=== PATIENT | male | born 1945 | race Caucasian/White ===

== ENCOUNTER 2016-04-14 07:06 | Inpatient (IN) | payer MEDICARE ==
[~2016-04-14] VITALS: Ht 185.4 cm; Wt 98.2 kg
[2016-04-14] VITALS (9 sets, daily range): BP systolic 142–210; BP diastolic 67–105; PULSE 64–95; RESP 18–20; TEMP 97.8–98.5; O2SAT 95–99
--- NOTE | 2016-04-14 07:15 | PD ---
HPI Chief Complaint: Complaint Time Seen by Provider: 07:07 Travel History International Travel<30 days: No Contact w/Intl Traveler<30days: No Traveled to known affect area: No History of Present Illness HPI 71-year-old male came to the emergency room with history of right lower quadrant and flank pain since past 3-4 days and progressively worsening. He was brought in by EMS. He looks uncomfortable and points the pain right in the right lower quadrant area and around it. He was hypertensive when he came in but also looked anxious. Patient says that he has not seen a doctor in 15-18 years. He is not on any medications. He is nauseous but no active vomiting or diarrhea. He did say that he's been having hard time having bowel movements because of some constipation. He did have a bowel movement yesterday. No history of fever or chills. Patient was afebrile in the emergency room. He has never had this kind of pain before. No history of passing kidney stones. He still has his appendix. Nothing makes the pain better or worse. [facility] Past Medical History Narrative Medical List of his past medical, social and family history is reviewed from the nursing note. Social History Tobacco Use: No Allergies-Medications (Allergen,Severity, Reaction): Coded Allergies: No Known Allergies (Unverified , 04/14/16) Comments No known drug allergies. Reported Meds & Prescriptions Reported Meds & Active Scripts Active Reported Aspirin Low Dose (Aspirin) 81 Mg Chew 81 Mg CHEW DAILY Multivitamin Adults (Multiple Vitamins W/ Minerals) 1 Tab 1 Tab PO DAILY Narrative Medication List of his home medications reviewed from the nursing note. Review of Systems Except as stated in HPI: all other systems reviewed are Neg Physical Exam Narrative GENERAL: Awake, alert, moderate distress SKIN: Warm and dry. HEAD: Atraumatic. Normocephalic. EYES: Pupils equal and round. No scleral icterus. No injection or drainage. ENT: No nasal bleeding or discharge. Mucous membranes pink and moist. NECK: Trachea midline. No JVD. CARDIOVASCULAR: Regular rate and rhythm. No murmur appreciated. RESPIRATORY: No accessory muscle use. Clear to auscultation. Breath sounds equal bilaterally. GASTROINTESTINAL: Abdomen soft, mild right lower quadrant tenderness on deep palpation, nondistended. Hepatic and splenic margins not palpable. MUSCULOSKELETAL: No obvious deformities. No clubbing. No cyanosis. No edema. NEUROLOGICAL: Awake and alert. No obvious cranial nerve deficits. Motor grossly within normal limits. Normal speech. PSYCHIATRIC: Appropriate mood and affect; insight and judgment normal. Data Data Last Documented VS Vital Signs Date Time Temp Pulse Resp B/P Pulse Ox O2 Delivery O2 Flow Rate FiO2 04/14/16 10:01 91 20 176/83 98 Room Air 04/14/16 07:20 97.8 Orders Complete Blood Count With Diff (04/14/16 07:19) Comprehensive Metabolic Panel (04/14/16 07:19) Lipase (04/14/16 07:19) Prothrombin Time / Inr (Pt) (04/14/16 07:19) Urinalysis - C+S If Indicated (04/14/16 07:19) Ct Abd/Pel W/O Iv Contrast (04/14/16 07:19) Iv Access Insert/Monitor (04/14/16 07:19) Ecg Monitoring (04/14/16 07:19) Oximetry (04/14/16 07:19) Morphine Inj (Morphine Inj) (04/14/16 07:30) Ondansetron Inj (Zofran Inj) (04/14/16 07:30) Sodium Chlor 0.9% 1000 Ml Inj (Ns 1000 M (04/14/16 07:19) Sodium Chloride 0.9% Flush (Ns Flush) (04/14/16 07:30) Blood Culture (04/14/16 09:27) Lactic Acid (04/14/16 09:27) Ceftriaxone Inj (Rocephin Inj) (04/14/16 09:30) Morphine Inj (Morphine Inj) (04/14/16 09:45) Sodium Chlor 0.9% 1000 Ml Inj (Ns 1000 M (04/14/16 10:34) Urinary Catheter Insert/Apply (04/14/16 09:34) Consult Urology (04/14/16 ) Admit Order (Ed Use Only) (04/14/16 10:00) Aspirin Chew (Aspirin Chew) (04/15/16 09:00) Multivitamins-Minerals Therap (Theragran (04/15/16 09:00) Labs Laboratory Tests Test 04/14/16 04/14/16 07:45 09:15 White Blood Count 19.3 TH/MM3 Red Blood Count 5.25 MIL/MM3 Hemoglobin 16.2 GM/DL Hematocrit 46.5 % Mean Corpuscular Volume 88.7 FL Mean Corpuscular Hemoglobin 30.8 PG Mean Corpuscular Hemoglobin 34.8 % Concent Red Cell Distribution Width 13.5 % Platelet Count 239 TH/MM3 Mean Platelet Volume 8.4 FL Neutrophils (%) (Auto) 57.4 % Lymphocytes (%) (Auto) 40.1 % Monocytes (%) (Auto) 2.2 % Eosinophils (%) (Auto) 0.1 % Basophils (%) (Auto) 0.2 % Neutrophils # (Auto) 11.1 TH/MM3 Lymphocytes # (Auto) 7.7 TH/MM3 Monocytes # (Auto) 0.4 TH/MM3 Eosinophils # (Auto) 0.0 TH/MM3 Basophils # (Auto) 0.0 TH/MM3 CBC Comment AUTO DIFF Differential Total Cells 100 Counted Neutrophils % (Manual) 48 % Band Neutrophils % 2 % Lymphocytes % 33 % Monocytes % 3 % Neutrophils # (Manual) 9.7 TH/MM3 Differential Comment FINAL DIFF MANUAL Atypical Lymphocytes 14 % Platelet Estimate NORMAL Platelet Morphology Comment NORMAL Red Cell Morphology Comment NORMAL Prothrombin Time 10.2 SEC Prothromb Time International 0.9 RATIO Ratio Urine Color YELLOW Urine Turbidity CLEAR Urine pH 5.5 Urine Specific [place] 1.016 Urine Protein NEG mg/dL Urine Glucose (UA) NEG mg/dL Urine Ketones NEG mg/dL Urine Occult Blood NEG Urine Nitrite NEG Urine Bilirubin NEG Urine Urobilinogen LESS THAN 2.0 MG/DL Urine Leukocyte Esterase NEG Urine RBC LESS THAN 1 /hpf Urine WBC LESS THAN 1 /hpf Urine Squamous Epithelial <1 /hpf Cells Urine Mucus FEW /lpf Microscopic Urinalysis Comment CULT NOT INDICATED Sodium Level 141 MEQ/L Potassium Level 4.7 MEQ/L Chloride Level 107 MEQ/L Carbon Dioxide Level 24.8 MEQ/L Anion Gap 9 MEQ/L Blood Urea Nitrogen 19 MG/DL Creatinine 1.24 MG/DL Estimat Glomerular Filtration 58 ML/MIN Rate Random Glucose 134 MG/DL Calcium Level 9.4 MG/DL Total Bilirubin 0.5 MG/DL Aspartate Amino Transf 37 U/L (AST/SGOT) Alanine Aminotransferase 45 U/L (ALT/SGPT) Alkaline Phosphatase 112 U/L Total Protein 8.0 GM/DL Albumin 4.5 GM/DL Lipase 88 U/L Lactic Acid Level 1.9 mmol/L [facility] Medical Decision Making Medical Screen Exam Complete: Yes Emergency Medical Condition: Yes Medical Record Reviewed: Yes Differential Diagnosis Acute appendicitis, renal colic, UTI Narrative Course 9:39 AM blood test results of back and shows significant leukocytosis with some left shift. UA looks to be within normal limit. Patient has some renal insufficiency. CAT scan was read as right hydroureter and hydronephrosis. However the radiologist cannot see the cause of the obstruction since it is not visible.There is a possibility of radiolucent stone or any other reason. Also patient has enlarged prostate and significant amount of urine in the bladder. I asked the patient if he had urinated after he came back from CT scan and he said maybe 200-250 cc. I have asked the nurse to go ahead and put a Yu catheter since I think patient at this point is and urinary obstruction. I explained the test results including the CAT scan report to the patient and his . I have ordered 1 g of Rocephin for a possible infection probably proximal to the right sided ureteral obstruction. Patient is still in pain and I have ordered a second dose of morphine. Initially I had given him a liter fluid bolus. I've ordered a fluid drip. I would like to consult urologist since in my opinion this patient needs to be scoped to see the cause of obstruction. I am waiting for the hospitalist call back for admission. Patient is aware of this status and is agreeable to the treatments. 9:49 AM I just spoke with Dr. Veliz from urology and he will consult on this patient once he is admitted. He does not foresee any surgical procedure today since he wants to do more workup on this patient first. Awaiting for the hospitalist to call back at this point. The nurse told me that 1600+ cc of urine has drained out since putting the Yu and it is still coming out. Procedures EKG Prior to Arrival: No Physician Communication Physician Communication Dr. Veliz Diagnosis Primary Impression: Hydroureter, right Additional Impressions: Hydronephrosis, right Right flank pain Leukocytosis Qualified Code: D72.829 - Leukocytosis, unspecified type Renal insufficiency Obstructive uropathy Admitting Information Admitting Physician Requests: Admit Scripts Tamsulosin (Flomax)0.4 Mg Cap0.4 Mg PO HS #30 CAP Prov:Mayco Ponce MD 04/15/16 Víctor Ortega MD Apr 14, 2016 07:15
[2016-04-14] MEDS ORDERED: SODIUM CHLOR 0.9% 1000 ML INJ 1,000 ML IV SCH ×2 (07:19→10:34)
[2016-04-14] MEDS ORDERED: MULT1TAB84 PO (07:26)
[2016-04-14] MEDS ORDERED: ASPI81CH37 CHEW (07:26)
[2016-04-14] MEDS ORDERED: MORPHINE SULFATE 4 MG/ML INJ IV PUSH ONE ×2 (07:30→09:45)
[2016-04-14] MEDS ORDERED: ONDANSETRON HCL 4 MG/2 ML VIAL IVP ONE (07:30)
[2016-04-14] MEDS ORDERED: SODIUM CHLORIDE 0.9% FLUSH 5 ML FLUSH IVF PRN ×2 (07:30→10:15)
[2016-04-14 08:16] LABS: AUTOMATED NEUTROPHIL # 11.1 TH/MM3 (1.8-7.7); BASOPHIL % 0.2 % (0.0-2.0); EOSINOPHIL % 0.1 % (0.0-4.0); HEMATOCRIT 46.5 % (39.0-51.0); LYMPH % 40.1 % (9.0-44.0); LYMPHOCYTE # 7.7 TH/MM3 (1.0-4.8); MEAN CELL VOLUME 88.7 FL (80.0-100.0); MEAN CORPUSCULAR HEMOGLOBIN 30.8 PG (27.0-34.0); MEAN CORPUSCULAR HGB CONC 34.8 % (32.0-36.0); MONO % 2.2 % (0.0-8.0); NEUT % 57.4 % (16.0-70.0); PLATELET COUNT 239 TH/MM3 (150-450); RED BLOOD COUNT 5.25 MIL/MM3 (4.50-5.90); RED CELL DISTRIBUTION WIDTH 13.5 % (11.6-17.2); WHITE BLOOD COUNT 19.3 TH/MM3 (4.0-11.0)
[2016-04-14 08:19] LABS: BLOOD, URINE NEG (NEG); COMMENT (UR) CULT NOT INDICATED; CULTURE IF INDICATED CULT NOT INDICATED; GLUCOSE,URINE NEG (NEG); HEMO FLAGS AUTO DIFF; KETONE, URINE NEG (NEG); MUCUS URINE FEW /lpf (OCC); NITRITE,URINE NEG (NEG); PH, URINE 5.5 (5.0-8.5); SQUAMOUS EPITHELIAL CELL URINE <1 /hpf (0-5); URINE COLOR YELLOW (YELLW/STRAW)
[2016-04-14 08:23] LABS: INTERNATIONAL NORMALIZED RATIO 0.9 RATIO; PROTHROMBIN TIME - PATIENT 10.2 SEC (9.8-11.6)
[2016-04-14 08:51] LABS: ALKALINE PHOSPHATASE 112 U/L (45-117); TOTAL BILIRUBIN ADULT 0.5 MG/DL (0.2-1.0)
[2016-04-14 08:52] LABS: ALT (GPT) 45 U/L (12-78); ANION GAP 9 MEQ/L (5-15); AST (GOT) 37 U/L (15-37); BICARBONATE 24.8 MEQ/L (21.0-32.0); BLOOD UREA NITROGEN 19 MG/DL (7-18); CHLORIDE 107 MEQ/L (98-107); GLOMERULAR FILTRATION RATE 58 ML/MIN (>89); POTASSIUM 4.7 MEQ/L (3.5-5.1); SODIUM (NA) 141 MEQ/L (136-145)
--- NOTE | 2016-04-14 08:55 | RADRPT ---
EXAM DATE/TIME: 04/14/2016 08:17 [place] COMPARISON: No previous studies available for comparison. INDICATIONS : Abdomen pain. ORAL CONTRAST: No oral contrast ingested. RADIATION DOSE: 15.59 CTDIvol (mGy) MEDICAL HISTORY : None SURGICAL HISTORY : Hernia ENCOUNTER: Initial ACUITY: 1 day PAIN SCALE: 5/10 LOCATION: Abdomen TECHNIQUE: Volumetric scanning of the abdomen and pelvis was performed. Using automated exposure control and ad justment of the mA and/or kV according to patient size, radiation dose was kept as low as reasonably achievable to obtain optimal diagnostic quality images. FINDINGS: LOWER LUNGS: The visualized lower lungs are clear. LIVER: Homogeneous density without lesion. There is no dilation of the biliary tree. No calcified gallston es. SPLEEN: Normal size without lesion. PANCREAS: Within normal limits. KIDNEYS: Bilateral peripelvic cysts are present. There is a 2 mm stone of the left mid zone that is quite thang rly nonobstructing. There is mild hydronephrosis and hydroureter on the right. Additionally, there is perinephric and periureteral edema. I don't clearly see a right-sided stone. Also no stone seen in t he urinary bladder. The bladder has a considerable amount of urine in it at the time of imaging. Ther e is mild wall thickening. A small diverticulum is seen of the bladder dome. Prostate mildly enlarged at about 5.1 cm transverse. ADRENAL GLANDS: Within normal limits. VASCULAR: There is no aortic aneurysm. BOWEL/MESENTERY: There is moderate to severe diverticulosis of the left side of the colon. No acute inflammatory padilla es are seen. Bowel gas pattern is nonobstructive. ABDOMINAL WALL: Within normal limits. RETROPERITONEUM: There is no lymphadenopathy. BLADDER: No wall thickening or mass. REPRODUCTIVE: Enlarged prostate. INGUINAL: There is no lymphadenopathy or hernia. MUSCULOSKELETAL: Within normal limits for patient age. CONCLUSION: 1. Mild right hydronephrosis and hydroureter with inflammatory changes compatible with mild acute obs tructive uropathy. However, I don't see a radiopaque stone. A radiolucent stone would be possible. A stone may have recently passed down the right ureter but I don't see one in the bladder. The differen tial would include obstruction and/or reflux related to bladder outlet obstruction. Bladder is disten ded at the time of imaging and has at least mild wall thickening and probably trabeculation. Prostate is enlarged. Upper urinary tract infection should also be considered. 2. 2 mm nonobstructing stone of the left kidney. There are peripelvic cysts on both sides. I don't se e left hydronephrosis. 3. Considerable diverticulosis of the left side of the colon but no diverticulitis or other acute GI tract inflammatory changes. Lupillo Snow MD on April 14, 2016 at 8:48 Board Certified Radiologist. This report was verified electronically.
[2016-04-14 09:22] LABS: ATYPICAL LYMPHOCYTES 14 % (0-0); BANDS 2 % (0-6); NEUTROPHIL # MANUAL DIFF 9.7 TH/MM3 (1.8-7.7); PLATELET ESTIMATE SMEAR NORMAL (NORMAL); PLATELET MORPHOLOGY NORMAL (NORMAL); POLYS (SEG NEUTROPHILS) 48 % (16-70); SCAN/DIFF FINAL DIFF MANUAL; WBC DIFF SAMPLE 100
[2016-04-14] MEDS ORDERED: cefTRIAXone INJ 1,000 MG in SODIUM CHLORIDE 0.9% INJ 100 ML IV ONE (09:30)
[2016-04-14] MEDS ORDERED: ONDANSETRON HCL 4 MG/2 ML VIAL IV PRN (10:15)
[2016-04-14] MEDS ORDERED: MORPHINE SULFATE 4 MG/ML INJ IV PRN (10:15)
[2016-04-14] MEDS: SODIUM CHLOR 0.9% 1000 ML INJ 1,000 ML IV SCH ×2 (11:13→22:12)
--- NOTE | 2016-04-14 16:54 | HHI.HP ---
HPI Service [facility] Primary Care Physician No Primary Care Physician Admission Diagnosis obstructive uropathy, right flank pain, leukocytosis, right hydroure Diagnoses: Chief Complaint: Right flank pain Travel History International Travel<30 Days: No Contact w/Intl Traveler <30 Da: No Traveled to Known Affected Are: No History of Present Illness 71-year-old male with no known medical history presented to the emergency room with complaint of right flank pain. Patient reports for the past week he has been having frequent urination, about every hour, slow stream and incomplete emptying. He denies fevers or chills. No dysuria or hematuria. CT of the abdomen with evidence of bilateral hydronephrosis, distended bladder, and an enlarged prostate. Yu catheter placed and 2 L of urine spontaneously drained. The patient's blood pressure was also found to be markedly elevated. He denies any history of hypertension. Denies chest pain or shortness of breath. Hospitalist service contacted for admission, workup and further treatment. Urology has been consulted as well. Review of Systems Constitutional: DENIES: Fever, Chills Endocrine: COMPLAINS OF: Polyuria Gastrointestinal: COMPLAINS OF: Constipation Genitourinary: COMPLAINS OF: Urinary frequency, Urgency, DENIES: Hematuria, Dysuria Except as stated in HPI: all other systems reviewed are Neg Past Family Social History Past Medical History None. The patient. Has not seen doctors in years. Past Surgical History Bilateral inguinal hernia repair in the s. Reported Medications Reported Meds & Active Scripts Active Reported Aspirin Low Dose (Aspirin) 81 Mg Chew 81 Mg CHEW DAILY Multivitamin Adults (Multiple Vitamins W/ Minerals) 1 Tab 1 Tab PO DAILY Allergies: Coded Allergies: No Known Allergies (Unverified , 04/14/16) Family History Reviewed and noncontributory to the current problems. 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 He denies tobacco. Admits to occasional glass of wine with dinner. No illicit drugs. Physical Exam Vital Signs Vital Signs Date Time Temp Pulse Resp B/P Pulse Ox O2 Delivery O2 Flow Rate FiO2 04/14/16 13:55 98.5 83 18 165/72 95 04/14/16 12:22 92 20 142/69 95 04/14/16 10:01 91 20 176/83 98 Room Air 04/14/16 08:48 18 04/14/16 08:38 95 20 191/93 95 04/14/16 08:09 88 18 193/86 96 Room Air 04/14/16 07:23 80 20 210/93 98 Room Air 04/14/16 07:20 97.8 64 18 210/93 99 Room Air 04/14/16 07:20 82 18 04/14/16 07:13 97.8 86 20 180/105 97 Physical Exam GENERAL: This is a well-nourished, well-developed patient, in no apparent distress. SKIN: No rashes, ecchymoses or lesions. Cool and dry. HEAD: Atraumatic. Normocephalic. No temporal or scalp tenderness. EYES: Pupils equal round and reactive. Extraocular motions intact. No scleral icterus. No injection or drainage. ENT: Nose without bleeding, purulent drainage or septal hematoma. Throat without erythema, tonsillar hypertrophy or exudate. Uvula midline. Airway patent. NECK: Trachea midline. No JVD or lymphadenopathy. Supple, nontender, no meningeal signs. CARDIOVASCULAR: Regular rate and rhythm without murmurs, gallops, or rubs. RESPIRATORY: Clear to auscultation. Breath sounds equal bilaterally. No wheezes , rales, or rhonchi. GASTROINTESTINAL: Abdomen soft, nondistended. Some mild discomfort over the right flank. No CVA tenderness. No guarding. MUSCULOSKELETAL: Extremities without clubbing, cyanosis, or edema. No joint tenderness, effusion, or edema noted. No calf tenderness. Negative Homans sign bilaterally. NEUROLOGICAL: Awake and alert. Cranial nerves II through XII intact. Motor and sensory grossly within normal limits. Five out of 5 muscle strength in all muscle groups. Normal speech. Laboratory Laboratory Tests Test 04/14/16 04/14/16 07:45 09:15 White Blood Count 19.3 Red Blood Count 5.25 Hemoglobin 16.2 Hematocrit 46.5 Mean Corpuscular Volume 88.7 Mean Corpuscular Hemoglobin 30.8 Mean Corpuscular Hemoglobin 34.8 Concent Red Cell Distribution Width 13.5 Platelet Count 239 Mean Platelet Volume 8.4 Neutrophils (%) (Auto) 57.4 Lymphocytes (%) (Auto) 40.1 Monocytes (%) (Auto) 2.2 Eosinophils (%) (Auto) 0.1 Basophils (%) (Auto) 0.2 Neutrophils # (Auto) 11.1 Lymphocytes # (Auto) 7.7 Monocytes # (Auto) 0.4 Eosinophils # (Auto) 0.0 Basophils # (Auto) 0.0 CBC Comment AUTO DIFF Differential Total Cells 100 Counted Neutrophils % (Manual) 48 Band Neutrophils % 2 Lymphocytes % 33 Monocytes % 3 Neutrophils # (Manual) 9.7 Differential Comment FINAL DIFF MANUAL Atypical Lymphocytes 14 Platelet Estimate NORMAL Platelet Morphology Comment NORMAL Red Cell Morphology Comment NORMAL Prothrombin Time 10.2 Prothromb Time International 0.9 Ratio Urine Color YELLOW Urine Turbidity CLEAR Urine pH 5.5 Urine Specific [place] 1.016 Urine Protein NEG Urine Glucose (UA) NEG Urine Ketones NEG Urine Occult Blood NEG Urine Nitrite NEG Urine Bilirubin NEG Urine Urobilinogen LESS THAN 2.0 Urine Leukocyte Esterase NEG Urine RBC LESS THAN 1 Urine WBC LESS THAN 1 Urine Squamous Epithelial <1 Cells Urine Mucus FEW Microscopic Urinalysis Comment CULT NOT INDICATED Sodium Level 141 Potassium Level 4.7 Chloride Level 107 Carbon Dioxide Level 24.8 Anion Gap 9 Blood Urea Nitrogen 19 Creatinine 1.24 Estimat Glomerular Filtration 58 Rate Random Glucose 134 Calcium Level 9.4 Total Bilirubin 0.5 Aspartate Amino Transf 37 (AST/SGOT) Alanine Aminotransferase 45 (ALT/SGPT) Alkaline Phosphatase 112 Total Protein 8.0 Albumin 4.5 Lipase 88 Lactic Acid Level 1.9 Date/Time Procedure Status Source Growth 04/14/16 09:15 Aerobic Blood Culture Received Blood Peripheral Pending 04/14/16 09:15 Anaerobic Blood Culture Received Blood Peripheral Pending Result Diagram: 04/14/16 0745 04/14/16 0745 Imaging Last Impressions Abdomen/Pelvis CT 04/14/16 0719 Signed Impressions: Service Date/Time: Thursday, April 14, 2016 08:17 - CONCLUSION: 1. Mild right hydronephrosis and hydroureter with inflammatory changes compatible with mild acute obstructive uropathy. However, I don't see a radiopaque stone. A radiolucent stone would be possible. A stone may have recently passed down the right ureter but I don't see one in the bladder. The differential would include obstruction and/or reflux related to bladder outlet obstruction. Bladder is distended at the time of imaging and has at least mild wall thickening and probably trabeculation. Prostate is enlarged. Upper urinary tract infection should also be considered. 2. 2 mm nonobstructing stone of the left kidney. There are peripelvic cysts on both sides. I don't see left hydronephrosis. 3. Considerable diverticulosis of the left side of the colon but no diverticulitis or other acute GI tract inflammatory changes. Lupillo Snow MD Assessment and Plan Problem List: (1) Obstructive uropathy ICD Code: N13.9 Status: Acute Plan: Likely due to bladder outlet obstruction, probably from BPH. Yu catheter placed and 2 L spontaneously draining. - Start Flomax. Urology consulted for assistance. (2) Hydroureter, right ICD Code: N13.4 Status: Acute Plan: Likely secondary to above. Plan as above. (3) Renal insufficiency ICD Code: N28.9 Status: Acute Plan: Likely secondary to obstructive uropathy. Follow BMP in a.m. (4) Right flank pain ICD Code: R10.9 Status: Acute Plan: Improved since the Yu was inserted. Pain control as needed. (5) Elevated blood pressure reading ICD Code: R03.0 Status: Acute Plan: No history of hypertension. Pain may be contributing. Will continue to monitor for now. Clonidine as needed. If persistently elevated, will start antihypertensive as patient may have undiagnosed hypertension. (6) Diverticulosis ICD Code: K57.90 Status: Acute Plan: Patient was made aware of the CT scan findings. He is advised to follow up outpatient. He is due for screening colonoscopy. He voiced understanding and agreed that it is time to follow-up. Discussed Condition With Dr. Ortega Physician Certification 2 Midnight Certification Type: Admission for Inpatient Services Order for Inpatient Services The services are ordered in accordance with Medicare regulations or non- Medicare payer requirements, as applicable. In the case of services not specified as inpatient-only, they are appropriately provided as inpatient services in accordance with the 2-midnight benchmark. Estimated LOS (days): 2 days is the estimated time the patient will need to remain in the hospital, assuming treatment plan goals are met and no additional complications. Post-Hospital Plan: Home Mayco Ponce MD Apr 14, 2016 16:54
--- NOTE | 2016-04-14 18:14 | PD.CONS ---
HPI Service Urology Consult Requested By Reason for Consult Hydronephrosis Primary Care Physician No Primary Care Physician Diagnosis: History of Present Illness 71 yo male with evidence of bilateral hydronephrosis and right flank pain with large distended bladder and likely bladder outlet obstruction. Patient has minaya catheter placed in the ED where over 2L of fluid was removed. Since that time the patient's pain has improved. He reports issues voiding prior to hospitalization with decreased stream, small volumes, and incomplete emptying. He denies any fevers, chills, n/V. CT scan identified the hydronephrosis with no evidence of kidney stones and a large distended bladder. Review of Systems ROS Limitations: Clinical Condition Constitutional: DENIES: Fever Endocrine: DENIES: Polyuria Eyes: DENIES: Blurred vision Ears, nose, mouth, throat: DENIES: Hearing loss Cardiovascular: DENIES: Chest pain Gastrointestinal: COMPLAINS OF: Abdominal pain Genitourinary: COMPLAINS OF: Urgency, DENIES: Hematuria Musculoskeletal: COMPLAINS OF: Back pain Integumentary: DENIES: Abnormal pigmentation Hematologic/lymphatic: DENIES: Bruising Neurologic: DENIES: Abnormal gait Psychiatric: DENIES: Anxiety Except as stated in HPI: all other systems reviewed are Neg Past Family Social History Past Medical History BPH Past Surgical History No known past surgical history Reported Medications Reported Meds & Active Scripts Active Reported Aspirin Low Dose (Aspirin) 81 Mg Chew 81 Mg CHEW DAILY Multivitamin Adults (Multiple Vitamins W/ Minerals) 1 Tab 1 Tab PO DAILY Allergies: Coded Allergies: No Known Allergies (Unverified , 04/14/16) Active Ordered Medications Current Medications Medications (Trade) Dose Ordered Sig/Delaney Route Start Time Stop Time Status Last Admin (Aspirin Chew) 81 mg DAILY CHEW 04/15/16 09:00 (Theragran M Tab) 1 tab DAILY PO 04/15/16 09:00 Tamsulosin HCl 0.4 mg 0.4 mg HS PO 04/14/16 21:00 (NS 1000 ml Inj) 1,000 ml @ 100 mls/hr Q10H IV 04/14/16 11:00 04/14/16 11:13 (NS Flush) 2 ml BID IVF 04/14/16 21:00 (NS Flush) 2 ml UNSCH PRN IVF 04/14/16 10:15 (Morphine Inj) 4 mg Q2H PRN IV 04/14/16 10:15 (Zofran Inj) 4 mg Q6H PRN IV 04/14/16 10:15 Family History Family history reviewed and noncontributory to present illness Social History No tobacco Occasional ETOH Physical Exam Vital Signs Vital Signs Date Time Temp Pulse Resp B/P Pulse Ox O2 Delivery O2 Flow Rate FiO2 04/14/16 13:55 98.5 83 18 165/72 95 04/14/16 12:22 92 20 142/69 95 04/14/16 10:01 91 20 176/83 98 Room Air 04/14/16 08:48 18 04/14/16 08:38 95 20 191/93 95 04/14/16 08:09 88 18 193/86 96 Room Air 04/14/16 07:23 80 20 210/93 98 Room Air 04/14/16 07:20 97.8 64 18 210/93 99 Room Air 04/14/16 07:20 82 18 04/14/16 07:13 97.8 86 20 180/105 97 Physical Exam GENERAL: This is a well-nourished, well-developed patient, in no apparent distress. SKIN: No rashes, ecchymoses or lesions. Cool and dry. HEAD: Atraumatic. Normocephalic. EYES: . Extraocular motions intact. No scleral icterus. No injection or drainage. ENT: Nose without bleeding, purulent drainage. Airway patent. NECK: Trachea midline. No JVD or lymphadenopathy. CARDIOVASCULAR: Normla pulses, extremities well perfused. RESPIRATORY: Nnolabred respirations, euqal chest rise GASTROINTESTINAL: Abdomen soft, non-tender, nondistended. No hepato-splenomegaly , or palpable masses. No guarding. GENITOURINARY: Minaya catheter in place, clear yellow urine. circumcised phallus , normal meatus MUSCULOSKELETAL: Extremities without clubbing, cyanosis, or edema. NEUROLOGICAL: Awake and alert. Motor and sensory grossly within normal limits. Normal speech. Laboratory Laboratory Tests Test 04/14/16 04/14/16 07:45 09:15 White Blood Count 19.3 Red Blood Count 5.25 Hemoglobin 16.2 Hematocrit 46.5 Mean Corpuscular Volume 88.7 Mean Corpuscular Hemoglobin 30.8 Mean Corpuscular Hemoglobin 34.8 Concent Red Cell Distribution Width 13.5 Platelet Count 239 Mean Platelet Volume 8.4 Neutrophils (%) (Auto) 57.4 Lymphocytes (%) (Auto) 40.1 Monocytes (%) (Auto) 2.2 Eosinophils (%) (Auto) 0.1 Basophils (%) (Auto) 0.2 Neutrophils # (Auto) 11.1 Lymphocytes # (Auto) 7.7 Monocytes # (Auto) 0.4 Eosinophils # (Auto) 0.0 Basophils # (Auto) 0.0 CBC Comment AUTO DIFF Differential Total Cells 100 Counted Neutrophils % (Manual) 48 Band Neutrophils % 2 Lymphocytes % 33 Monocytes % 3 Neutrophils # (Manual) 9.7 Differential Comment FINAL DIFF MANUAL Atypical Lymphocytes 14 Platelet Estimate NORMAL Platelet Morphology Comment NORMAL Red Cell Morphology Comment NORMAL Prothrombin Time 10.2 Prothromb Time International 0.9 Ratio Urine Color YELLOW Urine Turbidity CLEAR Urine pH 5.5 Urine Specific [place] 1.016 Urine Protein NEG Urine Glucose (UA) NEG Urine Ketones NEG Urine Occult Blood NEG Urine Nitrite NEG Urine Bilirubin NEG Urine Urobilinogen LESS THAN 2.0 Urine Leukocyte Esterase NEG Urine RBC LESS THAN 1 Urine WBC LESS THAN 1 Urine Squamous Epithelial <1 Cells Urine Mucus FEW Microscopic Urinalysis Comment CULT NOT INDICATED Sodium Level 141 Potassium Level 4.7 Chloride Level 107 Carbon Dioxide Level 24.8 Anion Gap 9 Blood Urea Nitrogen 19 Creatinine 1.24 Estimat Glomerular Filtration 58 Rate Random Glucose 134 Calcium Level 9.4 Total Bilirubin 0.5 Aspartate Amino Transf 37 (AST/SGOT) Alanine Aminotransferase 45 (ALT/SGPT) Alkaline Phosphatase 112 Total Protein 8.0 Albumin 4.5 Lipase 88 Lactic Acid Level 1.9 Date/Time Procedure Status Source Growth 04/14/16 09:15 Aerobic Blood Culture Received Blood Peripheral Pending 04/14/16 09:15 Anaerobic Blood Culture Received Blood Peripheral Pending Result Diagram: 04/14/16 0745 04/14/16 0745 Imaging Last 72 hours Impressions Abdomen/Pelvis CT 04/14/16 0719 Signed Impressions: Service Date/Time: Thursday, April 14, 2016 08:17 - CONCLUSION: 1. Mild right hydronephrosis and hydroureter with inflammatory changes compatible with mild acute obstructive uropathy. However, I don't see a radiopaque stone. A radiolucent stone would be possible. A stone may have recently passed down the right ureter but I don't see one in the bladder. The differential would include obstruction and/or reflux related to bladder outlet obstruction. Bladder is distended at the time of imaging and has at least mild wall thickening and probably trabeculation. Prostate is enlarged. Upper urinary tract infection should also be considered. 2. 2 mm nonobstructing stone of the left kidney. There are peripelvic cysts on both sides. I don't see left hydronephrosis. 3. Considerable diverticulosis of the left side of the colon but no diverticulitis or other acute GI tract inflammatory changes. Lupillo Snow MD Assessment and Plan Problem List: (1) Hydroureter, right ICD Code: N13.4 Status: Acute (2) Renal insufficiency ICD Code: N28.9 Status: Acute (3) Obstructive uropathy ICD Code: N13.9 Status: Acute Assessment and Plan Personal review of imaging studies identifies mild bilateral hydronephrosis, likely due to bladder outlet obstruction. No ureteral stones Minaya catheter in place with over 2L removed, pain improved Recommend maintain minaya catheter in place for 10-14 days with follow-up in urology clinic for potential voiding trial Start flomax therapy and continue as outpatient No further urological evaluation as inpatient at this time Please call with questions Balwinder Veliz MD Apr 14, 2016 18:14
[2016-04-14] MEDS ORDERED: DOCUSATE SODIUM 50 MG/SENNA 8.6 MG TAB PO PRN (18:45)
[2016-04-14] MEDS ORDERED: cloNIDine HCL 0.1 MG TAB PO PRN (18:45)
[2016-04-14] MEDS ORDERED: TEMAZEPAM 15 MG CAP PO PRN (18:45)
[2016-04-14] MEDS: SODIUM CHLORIDE 0.9% FLUSH 5 ML FLUSH IVF SCH (21:00)
[2016-04-14] MEDS ORDERED: TAMSULOSIN HCL 0.4 MG CAP PO SCH (21:00)
[2016-04-15] VITALS: BP 132/66; PULSE 72; RESP 16; TEMP 98.9; O2SAT 95
[2016-04-15 06:31] LABS: AUTOMATED NEUTROPHIL # 7.9 TH/MM3 (1.8-7.7); BASOPHIL % 0.3 % (0.0-2.0); EOSINOPHIL # 0.1 TH/MM3 (0-0.4); EOSINOPHIL % 0.4 % (0.0-4.0); HEMATOCRIT 36.8 % (39.0-51.0); LYMPH % 41.5 % (9.0-44.0); LYMPHOCYTE # 6.4 TH/MM3 (1.0-4.8); MEAN CELL VOLUME 89.1 FL (80.0-100.0); MEAN CORPUSCULAR HGB CONC 33.7 % (32.0-36.0); MONO % 6.3 % (0.0-8.0); NEUT % 51.5 % (16.0-70.0); PLATELET COUNT 181 TH/MM3 (150-450); RED BLOOD COUNT 4.13 MIL/MM3 (4.50-5.90); RED CELL DISTRIBUTION WIDTH 13.2 % (11.6-17.2); WHITE BLOOD COUNT 15.3 TH/MM3 (4.0-11.0)
[2016-04-15 06:37] LABS: HEMO FLAGS AUTO DIFF
[2016-04-15 07:16] LABS: BICARBONATE 26.8 MEQ/L (21.0-32.0); POTASSIUM 3.9 MEQ/L (3.5-5.1)
[2016-04-15 07:51] LABS: NEUTROPHIL # MANUAL DIFF 8.7 TH/MM3 (1.8-7.7); PLATELET ESTIMATE SMEAR NORMAL (NORMAL); PLATELET MORPHOLOGY NORMAL (NORMAL); POLYS (SEG NEUTROPHILS) 57 % (16-70); SCAN/DIFF FINAL DIFF MANUAL; WBC DIFF SAMPLE 100
[2016-04-15 08:00] VITALS: BP 134/75; PULSE 70; RESP 16; TEMP 96.6; O2SAT 96
[2016-04-15] MEDS ORDERED: TAMS5CAP PO (08:18)
--- NOTE | 2016-04-15 08:19 | HHI.DCPOC ---
Discharge Care Plan Diagnosis: (1) Obstructive uropathy (2) Renal insufficiency (3) Diverticulosis (4) Elevated blood pressure reading (5) Right flank pain Goals to Promote Your Health * To prevent worsening of your condition and complications * To maintain your health at the optimal level Directions to Meet Your Goals Take your medications as prescribed Follow your dietary instruction Follow activity as directed Keep your appointments as scheduled Take your immunizations and boosters as scheduled If your symptoms worsen call your PCP, if no PCP go to Urgent Care Center or Emergency Room Smoking is Dangerous to Your Health. Avoid second hand smoke Call the 24-hour hour crisis hotline for domestic abuse at Mayco Ponce MD Apr 15, 2016 08:19
[2016-04-15] MEDS ORDERED: ASPIRIN 81 MG CHEW TAB CHEW SCH (09:00)
[2016-04-15] MEDS ORDERED: MULTIVITAMINS/MINERALS THERAPEUTIC TAB PO SCH (09:00)
[2016-04-15] MEDS: SODIUM CHLORIDE 0.9% FLUSH 5 ML FLUSH IVF SCH (09:00)
--- NOTE | 2016-04-15 09:01 | HHI.PR ---
Subjective Remarks Patient reports that he is feeling great. No longer experiencing right flank pain. Yu draining well. He is cleared by urology for discharge. Objective Vitals Vital Signs Date Time Temp Pulse Resp B/P Pulse Ox O2 Delivery O2 Flow Rate FiO2 04/15/16 00:00 98.9 72 16 132/66 95 04/14/16 20:01 98.0 78 20 142/67 96 04/14/16 13:55 98.5 83 18 165/72 95 04/14/16 12:22 92 20 142/69 95 04/14/16 10:01 91 20 176/83 98 Room Air I/O 04/14/16 04/14/16 04/14/16 04/15/16 04/15/16 04/15/16 07:00 15:00 23:00 07:00 15:00 23:00 Intake Total 1440 ml 1090 ml Output Total 1000 ml 1875 ml 600 ml Balance -1000 ml -435 ml 490 ml Intake Oral 1440 ml 480 ml IV Total 610 ml Output Urine Total 1000 ml 1875 ml 600 ml # Bowel Movements 0 Result Diagram: 04/15/16 0551 04/15/16 0551 Imaging Last Impressions Abdomen/Pelvis CT 04/14/1619 Signed Impressions: Service Date/Time: Thursday, April 14, 2016 08:17 - CONCLUSION: 1. Mild right hydronephrosis and hydroureter with inflammatory changes compatible with mild acute obstructive uropathy. However, I don't see a radiopaque stone. A radiolucent stone would be possible. A stone may have recently passed down the right ureter but I don't see one in the bladder. The differential would include obstruction and/or reflux related to bladder outlet obstruction. Bladder is distended at the time of imaging and has at least mild wall thickening and probably trabeculation. Prostate is enlarged. Upper urinary tract infection should also be considered. 2. 2 mm nonobstructing stone of the left kidney. There are peripelvic cysts on both sides. I don't see left hydronephrosis. 3. Considerable diverticulosis of the left side of the colon but no diverticulitis or other acute GI tract inflammatory changes. Lupillo Snow MD Objective Remarks GENERAL: This is a well-nourished, well-developed patient, in no apparent distress. CARDIOVASCULAR: Normal rate and regular rhythm without murmurs, gallops, or rubs. RESPIRATORY: Good respiratory efforts. Breath sounds equal and clear to auscultation bilaterally. GASTROINTESTINAL: Abdomen soft, non-tender, non-distended. Normal active bowel sounds MUSCULOSKELETAL: Extremities without cyanosis, or edema. NEURO: Alert & Oriented x4 to person, place, time, situation. Moves all ext x4 PSYCH: Appropriate mood and affect. A/P Problem List: (1) Obstructive uropathy ICD Code: N13.9 Status: Acute Plan: Likely due to bladder outlet obstruction, probably from BPH. Yu catheter placed and 2 L spontaneously draining. -Urology evaluated the patient. Recommendation is to keep the Yu for 10-14 days and can do voiding trial in the clinic. He is cleared for discharge to follow-up outpatient. (2) Hydroureter, right ICD Code: N13.4 Status: Acute (3) Renal insufficiency ICD Code: N28.9 Status: Acute (4) Right flank pain ICD Code: R10.9 Status: Acute Plan: Resolved. (5) Elevated blood pressure reading ICD Code: R03.0 Status: Acute Plan: No history of hypertension. Pain was likely contributing. Blood pressure acceptable once pain resolved. No new medications. (6) Diverticulosis ICD Code: K57.90 Status: Acute Plan: Patient was made aware of the CT scan findings. He is advised to follow up outpatient. He is due for screening colonoscopy. He voiced understanding and agreed that it is time to follow-up. Discharge Planning Discharge home in good condition. Follow-up with urology in 10-14 days Meds: See med rec. Diet: Heart healthy, high-fiber diet. Patient advised to drink plenty of water. Activity: Regular as tolerated. Mayco Ponce MD Apr 15, 2016 09:01
== END 2016-04-15 17:24 | disposition home or self-care (01) | DRG 694 ==
LOC: NEPE 07:06 → NEDA 10:02 → N06A 13:38
PROVIDERS: ADMIT Family Medicine; ATTEND Family Medicine
DX: N13.8 Other obstructive and reflux uropathy (principal); N13.2 Hydronephrosis with renal and ureteral calculous obstruction; N39.0 Urinary tract infection, site not specified; N32.0 Bladder-neck obstruction; K57.30 Diverticulosis of large intestine without perforation or abscess without bleeding; N40.1 Benign prostatic hyperplasia with lower urinary tract symptoms; K21.9 Gastro-esophageal reflux disease without esophagitis; N28.9 Disorder of kidney and ureter, unspecified; K59.00 Constipation, unspecified
CPT/HCPCS: 51702; 74176; 80048; 80053; 81001; 83605; 83690; 85007; 85027; 85610; 87040; 96361; 96374; 96375; 96376; J0696; J2270; J2405; J7030